=== PATIENT | male | born 1965 | race Caucasian/White ===

== ENCOUNTER 2023-07-26 08:27 | Outpatient (CLI) | payer BC | END 2023-07-26 08:28 | disposition home or self-care (01) | LOC: CSHMRI 08:27 | PROVIDERS: ATTEND Orthopaedic Surgery | DX: Z01.818 Encounter for other preprocedural examination (principal); Z95.0 Presence of cardiac pacemaker; S46.012A Strain of muscle(s) and tendon(s) of the rotator cuff of left shoulder, initial encounter | CPT/HCPCS: 71045 ==